=== PATIENT | female | born 1940 | race Caucasian/White ===

== ENCOUNTER 2024-10-01 09:17 | Emergency (ER) | payer MEDICARE, SELFPAY ==
[2024-10-01 09:24] VITALS: BP 148/71
--- NOTE | 2024-10-01 09:30 | ED.GENMED ---
History of Present Illness
General
Chief Complaint: Abdominal Symptoms
Time Seen by Provider: 10/01/24 09:29
History of Present Illness
History of Present Illness:
TIME OF INITIAL ENCOUNTER: 9:30 AM
HPI: Patient presents with left lower quad discomfort associate with some loose stool. Symptoms started while she was at [facility] for her grandsons graduation. She had some chills the other day as well. She intentionally did not eat anything
today. This feels very similar to the time she had diverticulitis.
EXAM:
GENERAL: Well appearing in no distress
HEENT: Moist oral mucosa
CARDIOVASCULAR: No murmurs, normal heart rate, regular rhythm, No chest wall tenderness
PULMONARY: No respiratory distress, breath sounds are clear and equal
ABDOMEN: Soft with no peritoneal signs, mild left lower quadrant tenderness
NEUROLOGIC: Excellent strength all extremities, no coordination deficits
PSYCHIATRIC: Appropriate mental status, normal insight and judgement
EXTREMITIES: Nontender, no edema, moves all extremities equally
SKIN: No rash, no lesions
NUMBER AND COMPLEXITY OF PROBLEMS ADDRESSED AT THE ENCOUNTER
� Chronic conditions affecting care: Diverticular disease, A-fib, high blood pressure, hyperlipidemia, anxiety/depression, has had cholecystectomy and hysterectomy
� Acute Exacerbation and/or Progression of Chronic Illness: This is an acute problem but is had similar episodes in the past
� Differential Diagnosis includes: Diverticulitis, muscle strain, mesenteric adenitis, epiploic appendagitis, based on vital signs, no evidence for sepsis
AMOUNT AND/OR COMPLEXITY OF DATA TO BE REVIEWED AND ANALYZED
� I performed an independent evaluation of and my interpretation is:
EKG:
CT: CT shows acute uncomplicated diverticulitis
X-rays:
Laboratory Studies: White count hemoglobin normal, chemistries unremarkable with exception of slightly low potassium 3.4
Other:
� Review of other/old records: The patient was treated with Augmentin for presumed diverticulitis in 2021
� Clinical information was obtained by an independent historian: None needed
� Prescriptions/Medications Considered but not given:
� Further testing considered but not performed:
RISK OF COMPLICATIONS AND/OR MORBIDITY OR MORTALITY OF PATIENT MANAGEMENT
� Social determinants of health affecting care: Lives at home in [place]
� Discussion with other providers:
� Escalation of care including admission/observation vs risk of discharge considered: Given patient's age, will obtain CT imaging
ANY OTHER UPDATES:
11:45 AM: I reassessed patient. The patient appears very comfortable. She is eager to go home. She was given Augmentin in the past. Will resume Augmentin now.
Past History
Past History
ED Past Medical History: Arrthythmia (Atrial fibrillation), HTN and Hypercholesterolemia
ED Past Surgical History: Cholecystectomy
Social History
Tobacco: Non-smoker
Alcohol: None
Drug: None
Phy Exam
Physical Exam
Physical Exam:
See HPI
Course
Orders/Labs/Results
Orders:
Orders
10/01/24 09:36
CT Abd/pelvis W Iv Cont Urgent
Comment:
Reason For Exam: LLQ pain/tender; h/o diverticulitis
10/01/24 09:53
Basic Metabolic Panel Urgent
Complete Blood Count/With Diff Urgent
10/01/24 11:49
Amoxicillin 875 mg/Clav 125 mg [Augmentin 875 mg/125 mg] 1 tablet PO NOW STA
Abnormal Lab Results
10/01/24
09:53
MCHC 32.8 L g/dL
(33.0-37.0)
MPV 10.7 H fL
(7.4-10.4)
Potassium 3.4 L mmol/L
(3.5-5.1)
Creatinine 0.5 L mg/dL
(0.6-1.0)
Glucose 139 H mg/dl
(70-99)
10/01/24 09:53
10/01/24 09:53
Vital Signs
Initial and Last Documented VS:
Initial Vital Signs
Temp Pulse Resp BP Pulse Ox
36.8 C 78 18 148/71 96
10/01/24 09:24 10/01/24 09:24 10/01/24 09:24 10/01/24 09:24 10/01/24 09:24
Last Documented Vital Signs
Temp Pulse Resp BP Pulse Ox
36.8 C 78 18 148/71 96
10/01/24 09:24 10/01/24 09:24 10/01/24 09:24 10/01/24 09:24 10/01/24 09:24
*Critical Care Note
Total Time (30-74mins, 75-104mins- exclusive of procedures): Not Applicable
ED Attending Note
-
Portions of this chart may have been created with voice recognition software.� Occasional wrong word or��sound alike� substitutions may have occurred due to the inherent limitations of voice recognition software.
Discharge Plan
Departure
Patient Disposition: Home (Routine Discharge)
Date of Disposition: 10/01/24
Time of Disposition: 11:47
Patient with high blood pressure during this ER visit?: Yes
Discharge Problem:
Diverticulitis
Prescriptions:
New
amoxicillin-pot clavulanate 875-125 mg tablet
1 tab PO BID Qty: 14 0RF
No Action
amoxicillin-pot clavulanate 875-125 mg tablet
1 tab PO BID Qty: 14 0RF
Referrals:
UNKNOWN - PT DOES,NOT KNOW [Family Provider] -
Activity Restrictions/Additional Instructions:
Your white blood cell count is normal. Other basic blood work is unremarkable. Your CAT scan shows acute uncomplicated diverticulitis. I am sending a prescription for Augmentin to your pharmacy.
Interventions
Interventions:
*Risk Screen - Suicide Last Done: 10/01/24 09:24
*General Assessment Last Done: 10/01/24 09:24
*Neglect/Abuse Screening Last Done: 10/01/24 09:24
BB-[id number]-[id number] Assessment Last Done: 10/01/24 09:50
Discharge Date and Time
Print Language: OCCITAN
[2024-10-01 09:51] VITALS: BMI 27.9
[2024-10-01 10:05] LABS: % Basophils 0.4 % (0-2); % Eosinophils 1.8 % (0-6); % Immature Granulocytes 0.1 % (0-0.5); % Lymphocytes 24.4 % (20.5-51.1); % Monocytes 6.9 % (1.7-9.3); % Neutrophils 66.4 % (42.2-75.2); Absolute Eosinophils 0.1 10^3/uL (0-0.7); Absolute Lymphocytes 1.7 10^3/uL (1.2-3.4); Absolute Monocytes 0.5 10^3/uL (0.1-0.6); Absolute Neutrophils 4.5 10^3/uL (1.4-6.5); Hematocrit 42.4 % (37.0-47.0); Hemoglobin 13.9 g/dL (12.0-16.0); Mean Corp Hgb Conc. 32.8 g/dL (33.0-37.0); Mean Corpuscular Hgb 29.1 pg (27.0-31.0); Mean Corpuscular Volume 88.7 fL (81.0-99.0); Mean Platelet Volume 10.7 fL (7.4-10.4); Nucleated Red Blood Cells % 0 %; Platelet Count 206 10^3/uL (130-400); Red Blood Cell Count 4.78 10^6/uL (4.20-5.40); Red Cell Dist. Width 13.9 % (11.5-14.5); White Blood Cell Count 6.8 10^3/uL (4.8-10.8)
[2024-10-01 10:20] LABS: Blood Urea Nitrogen 12 mg/dl (7-17); Calcium 8.9 mg/dl (8.4-10.2); Carbon Dioxide 28 mmol/L (22-30); Chloride 104 mmol/L (98-107); Estimated Creatinine Clearance 79 ml/min; Glucose 139 mg/dl (70-99); Potassium 3.4 mmol/L (3.5-5.1); Sodium 137 mmol/L (135-145); eGFR > 60.00
[2024-10-01] MEDS: AUGMENTIN 875 MG/125 MG 1 TABLET PO (11:59)
== END 2024-10-01 12:42 | disposition home or self-care (01) ==
LOC: EMR 09:17
PROVIDERS: EMERGENCY PHYSICIAN Emergency Medicine
DX: K57.32 Diverticulitis of large intestine without perforation or abscess without bleeding (principal); E78.00 Pure hypercholesterolemia, unspecified; I10 Essential (primary) hypertension; I48.91 Unspecified atrial fibrillation; Z90.49 Acquired absence of other specified parts of digestive tract
CPT/HCPCS: 99284; 74177; 80048; 85025; Q9967